=== PATIENT | male | born 1965 | race Caucasian/White ===

== ENCOUNTER 2019-02-15 08:24 | Day surgery (SDC) | payer OTHER ==
[2019-02-15] MEDS ORDERED: LACTATED RINGERS 1,000 ML IV ONE (09:02)
[2019-02-15] MEDS ORDERED: MIDAZOLAM 2 MG/2 ML VIAL IVP ONE (09:11)
[2019-02-15] MEDS ORDERED: fentaNYL 250 MCG/5 ML VIAL IVP ONE (09:11)
[2019-02-15 10:26] VITALS: BP 115/76
== END 2019-02-15 08:25 | disposition home or self-care (01) ==
LOC: SDS 08:24
PROVIDERS: ATTEND Surgery
PROC: 0DJD8ZZ Inspection of Lower Intestinal Tract, Via Natural or Artificial Opening Endoscopic (ICD-10-PCS; principal; 2019-02-15 09:45)
DX: Z12.11 Encounter for screening for malignant neoplasm of colon (principal); K64.8 Other hemorrhoids
CPT/HCPCS: 45378; J3010; J7120

== ENCOUNTER 2019-08-13 08:49 | Outpatient (CLI) | payer OTHER ==
[2019-08-13] MEDS ORDERED: IOVERSOL 320 100 ML VIAL IVP ONE ×2 (09:09→09:16)
--- NOTE | 2019-08-13 10:49 | CT Report ---
Reason: MICROSCOPIC HEMATURIA Procedure Date: 08/13/2019 Accession Number: [id number] / [id number] Procedure: CT - IVP CPT Code: FULL RESULT: EXAM: CT ABDOMEN AND PELVIS WITHOUT AND WITH CONTRAST (CT IVP) EXAM DATE: 08/13/2019 09:33 AM. CLINICAL HISTORY: Microscopic hematuria. COMPARISONS: None. TECHNIQUE: Routine helical imaging was performed through the kidneys, ureters and bladder in the precontrast, postcontrast and delayed phase. IV Contrast: Optiview 320 100 mL. Reconstructions: Coronal and sagittal. In accordance with CT protocol optimization, one or more of the following dose reduction techniques were utilized for this exam: automated exposure control, adjustment of mA and/or KV based on patient size, or use of iterative reconstructive technique. FINDINGS: Lung Bases: Unremarkable. Liver: Normal. No masses. Gallbladder/Bile Ducts: No biliary dilatation. The gallbladder is decompressed without evidence of cholelithiasis. Spleen: Normal. Pancreas: Normal. Adrenal Glands: Normal. Kidneys/Bladder: Right Kidney/Ureter: There is a solitary punctate nonobstructing right upper pole intrarenal calculus. Otherwise, no evidence of nephrolithiasis. No hydronephrosis or hydroureter. No masses. Left Kidney/Ureter: No renal or ureteral stones. No hydronephrosis or hydroureter. No masses. Bladder: No stones. No wall thickening or mass. Peritoneal Cavity/Bowel: Normal. No free fluid, free air or adenopathy. No masses or acute inflammatory process. Pelvic Organs: There is borderline prostatic enlargement. Vasculature: No aneurysms or other significant abnormality. Bones: No significant abnormality. Other: None. IMPRESSION: 1. There is a solitary punctate nonobstructing right upper pole intrarenal calculus. 2. Otherwise negative examination. [facility]
== END 2019-08-13 08:50 | disposition home or self-care (01) ==
LOC: DI 08:49
PROVIDERS: ATTEND Urology
DX: N20.0 Calculus of kidney (principal); R31.29 Other microscopic hematuria
CPT/HCPCS: 74178; Q9967

== ENCOUNTER 2021-09-17 12:55 | Day surgery (SDC) | payer OTHER ==
[~2021-09-17 12:55] MED LIST: LIDOCAINE-MPF 2% 5 ML VIAL ONE; MIDAZOLAM 2 MG/2 ML VIAL ONE; PROPOFOL 200 MG/20 ML VIAL IVP ONE; fentaNYL 100 MCG/2 ML VIAL ONE
[2021-09-17] MEDS ORDERED: LACTATED RINGERS 1,000 ML IV ONE (12:59)
[2021-09-17] MEDS ORDERED: ROCURONIUM 50 MG/5 ML VIAL ONE (13:25)
[2021-09-17] MEDS ORDERED: PROPOFOL 200 MG/20 ML VIAL IVP ONE (13:31)
--- NOTE | 2021-09-17 13:32 | ANESTHESIA ---
Pre-Anesthesia VS, & Labs - Diagnosis external hemorrhoid - Procedure external hemorrhoidectomy Vital Signs: Temp Pulse Resp BP Pulse Ox 36.3 C L 63 16 120/81 H 100 09/17/21 13:01 09/17/21 13:01 09/17/21 13:01 09/17/21 13:01 09/17/21 13:01 Height: 6 ft Weight (kg): 87.5 kg Body Mass Index: 26.2 BMI Classification: Overweight - NPO >8 hours Last Fluid Intake: black coffee 0800 Home Medications and Allergies Home Medications: Ambulatory Orders No Known Home Medications 09/13/21 No Known Home Medications 09/13/21 Allergies/Adverse Reactions: Allergies Allergy/AdvReac Type Severity Reaction Status Date / Time No Known Drug Allergies Allergy Verified 09/13/21 12:17 Anes History & Medical History - Anesthetic History Anesthesia Complications: reports: No previous complications Family history of Anesthesia Complications: Denies Family history of Malignant Hyperthermia: Denies - Medical History Cardiovascular: reports: None Pulmonary: reports: None Gastrointestinal: reports: Hemorrhoids Urinary: reports: None Musculoskeletal: reports: None Endocrine/Autoimmune: reports: None Skin: reports: None - Surgical History General: reports: Colonoscopy Orthopedic: reports: Carpal Tunnel surgery Exam General: Alert, Oriented x3 Dental: WNL Mouth Openin Fingerbreadth Neck Mobility: Normal Mallampati classification: I Thyromental Distance: 4-6 cm Respiratory: Lungs clear Cardiovascular: Regular rate Plan Anesthesia Type: General (GA as back up), Total IV Consent for Procedure(s) Verified and Reviewed: Yes Code Status: Attempt Resuscitation ASA classification: 1-Healthy patient Is this case an emergency?: No
[2021-09-17] MEDS ORDERED: BUPIVACAINE 0.5% PF 10 ML VIAL ONE ×3 (13:36→14:04)
[2021-09-17] MEDS ORDERED: LIDOCAINE 2%-EPI 1:100000 20 ML MDV ONE (13:37)
[2021-09-17] MEDS ORDERED: NALOXONE 0.4 MG/ML VIAL IVP PRN (13:41)
[2021-09-17] MEDS ORDERED: fentaNYL 100 MCG/2 ML VIAL IVP PRN (13:41)
[2021-09-17] MEDS ORDERED: ePHEDrine 50 MG/ML VIAL IVP PRN (13:41)
[2021-09-17] MEDS ORDERED: ONDANSETRON 4 MG/2 ML VIAL IVP PRN ×2 (13:41→14:24)
[2021-09-17] MEDS ORDERED: MORPHINE 2 MG/ML CARPUJECT IVP PRN (13:41)
[2021-09-17] MEDS ORDERED: METOCLOPRAMIDE 10 MG/2 ML VIAL IVP PRN (13:41)
[2021-09-17] MEDS ORDERED: HYDROmorphone 0.5 MG/0.5 ML SYRINGE IVP PRN ×2 (13:41→14:24)
[2021-09-17] MEDS ORDERED: ATROPINE ABBOJECT 1 MG/10 ML SYRINGE IVP PRN (13:41)
[2021-09-17] MEDS ORDERED: LACTATED RINGERS 1,000 ML IV SCH (14:00)
[2021-09-17] MEDS ORDERED: BUPIVACAINE 0.5% PF 30 ML VIAL INFIL ONE (14:06)
[2021-09-17] MEDS ORDERED: LACTATED RINGERS 550 ML IV ONE (14:15)
--- NOTE | 2021-09-17 14:20 | OPERATIVE REPORT ---
Operative Report - General Procedure Date: 09/17/21 Planned Procedure: Excisional external hemorrhoidectomy Pre-Op Diagnosis: Symptomatic thrombosed external hemorrhoid Procedure Performed: Excisional external hemorrhoidectomy Post Op Diagnosis: Same - Procedure Note Primary Surgeon: Felix Lepe MD Anesthesia Provider: Olivia Sawyer CRNA Anesthesia Technique: Local (30 mL of half percent Marcaine), MAC IV Fluids (mL): 400 Estimated Blood Loss (mL): 1 Drain/Tube Type: Other (None.) Indications: Symptomatic thrombosed external hemorrhoid Findings: Symptomatic thrombosed external hemorrhoid at the 9 o'clock position Complications: None. - Other Other Information/Narrative: After verbal and written informed consent was obtained detailing the operation, the alternatives the operation including no operation, risks of infection, bleeding requiring transfusion with its risks, nerve injury, and and after I met with the patient confirming the surgery and the site of surgery, the patient was brought to the operative suite and placed supine on the operating table. Great care was taken to avoid pressure points to prevent pressure necrosis or nerve injury. Monitoring devices were applied along with TEDs and pneumatic compression stockings (to prevent DVT). Olivia Sawyer CRNA sedated and anesthetized the patient for the entire procedure. The patient was prepped and draped in the usual sterile manner. A "time in" then confirmed that the patient was identified with 3 identifiers (name, date, and medical record number), the history and physical was updated and in the chart, the signed consent confirming the procedure was in the chart, the patient was in the correct position, the aforementioned prophylactic measures were in place or given, we had the correct personnel and equipment to complete the procedure and that anesthesia and the surgical team were given an opportunity to express any concerns. With the agreement of everyone in the room we proceeded with the operation. After anesthetizing the skin overlying the thrombosed hemorrhoid as well as the tissues underneath the thrombosed hemorrhoid with half percent Marcaine serial application of a LigaSure excised the thrombosed hemorrhoid along with a thrombus. Great care was taken to ensure that the dissection did not go deep to affect the sphincters. The specimen was then delivered from the operative field and opened on the back table for educational purposes showing the thrombosis. Minimal bleeding was noted primarily from the needle insertion sites and none from the excision site. Dressings were applied. At this point a timeout was performed that confirmed that all counts were correct x2, the procedure that was performed, the blood loss, the IV fluids administered, the patient's condition, and any concerns of the operating team had. Having tolerated the procedure well, the patient was taken recovery room in good and stable condition. The plan is for outpatient discharge when the patient is adequately recovered. This document was created in part using voice recognition technology. Because of the inherent limitations of the system, occasional same sounding word substitutions and grammatical errors do occur and persist despite proofreading. Please read this document for content.
[2021-09-17] MEDS ORDERED: HYDROcod/ACETAM 5/325 MG TABLET PO PRN (14:24)
--- NOTE | 2021-09-17 14:38 | ANESTHESIA POST OP EVALUATION ---
Anesthesia Post Eval - Post Anesthesia Eval Vitals: Last Vital Signs Temp 36.4 C L 09/17/21 14:15 Pulse 55 L 09/17/21 14:15 Resp 12 09/17/21 14:15 BP 117/82 H 09/17/21 14:15 Pulse Ox 100 09/17/21 14:15 CV Function Including HR & BP: Stable Pain Control: Satisfactory Nausea & Vomiting: Negative Mental Status: Baseline Respiratory Status: Airway Patent Hydration Status: Satisfactory Anesthesia Complications: None
[2021-09-17 15:08] VITALS: BP 118/86
== END 2021-09-17 12:56 | disposition home or self-care (01) ==
LOC: SDS 12:55
PROVIDERS: ATTEND Surgery
DX: K64.5 Perianal venous thrombosis (principal)
CPT/HCPCS: 46320; J7120

== ENCOUNTER 2022-11-16 08:11 | Outpatient (CLI) | payer OTHER ==
[2022-11-16] MEDS ORDERED: GADOBUTROL 10 MMOL/10 ML VIAL IVP ONE (10:40)
--- NOTE | 2022-11-16 14:21 | MRI Report ---
PROCEDURE: MRI lumbar spine without contrast INDICATIONS: LUMBAR SPRAIN TECHNIQUE: Noncontrast sagittal T1 spin echo and T2 fast echo, sagittal STIR, axial T1 and T2 fast spin echo thr ough the lumbar spine. In cases with scoliosis, additional coronal T2 fast spin echo may be performe d. COMPARISON: None. FINDINGS: Image quality: Excellent. Alignment and Curvature: There is normal bony alignment. Bone Marrow: Marrow is of normal overall signal. No acute vertebral body compression fractures. Spinal Cord: Conus medullaris terminates at the L1 level. Visualized cord demonstrates normal signa l and size. Paraspinous Soft Tissues: No paravertebral masses. T12-L1: Normal in appearance. L1-L2: Mild disc height is maintained. Small focal asymmetric right disc bulge effaces the right l ateral recess. Mild central stenosis. No foraminal stenosis bilaterally. L2-L3: Disc height is maintained. Circumferential disc bulge without central or foraminal stenosis . L3-L4: Disc height is maintained. Circumferential disc bulge and hypertrophic facet joints combine to result in mild central stenosis. No foraminal stenosis L4-L5: Disc height is maintained. Circumferential disc bulge and facet hypertrophy results in mild central stenosis. Moderate right and no left foraminal stenosis L5-S1: Normal in appearance. IMPRESSION: Mild multilevel degenerative disc disease and arthropathy results in moderate right foraminal stenosi s at L4-5 Reviewed by: James Lieberman MD on 11/16/2022 1:20 PM [facility] Approved by: James Lieberman MD on 11/16/2022 1:20 PM [facility] Station ID: [id number]
== END 2022-11-16 08:12 | disposition home or self-care (01) ==
LOC: DI 08:11
PROVIDERS: ATTEND Physical Medicine & Rehabilitation Pain Medicine
DX: M51.36 Other intervertebral disc degeneration, lumbar region (principal); M48.061 Spinal stenosis, lumbar region without neurogenic claudication
CPT/HCPCS: 72148; A9585

== ENCOUNTER 2022-11-16 08:56 | Outpatient (CLI) | payer OTHER ==
[~2022-11-16 08:56] MED LIST changes: +GADOBUTROL 10 MMOL/10 ML VIAL ONE; -LIDOCAINE-MPF 2% 5 ML VIAL ONE; -MIDAZOLAM 2 MG/2 ML VIAL ONE; -PROPOFOL 200 MG/20 ML VIAL IVP ONE; -fentaNYL 100 MCG/2 ML VIAL ONE
--- NOTE | 2022-11-16 14:10 | MRI Report ---
PROCEDURE: MRI brain with and without contrast INDICATIONS: VERTIGO CONTRAST: 8.4 TECHNIQUE: Noncontrast axial T1 spin echo, axial T2 fast spin echo, sagittal and axial FLAIR, coronal T2 fast sp in echo, axial gradient echo, axial diffusion and ADC through the brain. After the administration of contrast, axial and coronal T1 spin echo with fat saturation through the brain. COMPARISON: None. FINDINGS: Image quality: Excellent. CSF spaces: Basal cisterns are patent. No extra-axial fluid collections. Ventricles are normal in size and shape. Brain: No midline shift. No intracranial bleeds or masses. No abnormal intracranial enhancement. There is cerebral volume loss for age. There is periventricular white matter chronic small vessel is chemic change. The brainstem appears normal. Diffusion-weighted images demonstrate no acute infarct s. Normal intravascular flow voids are present. Skull and face: Calvarial marrow is normal in signal. Orbits appear normal. Sinuses: Sinuses and mastoids appear clear. IMPRESSION: Normal MRI of the brain with and without contrast Reviewed by: James Lieberman MD on 11/16/2022 1:08 PM [facility] Approved by: James Lieberman MD on 11/16/2022 1:08 PM [facility] Station ID: [id number]
== END 2022-11-16 08:57 | disposition home or self-care (01) ==
LOC: DI 08:56
PROVIDERS: ATTEND Internal Medicine
DX: R42 Dizziness and giddiness (principal)
CPT/HCPCS: 70553; A9585

== ENCOUNTER 2023-04-04 09:59 | Outpatient (CLI) | payer OTHER ==
[2023-04-04] MEDS ORDERED: GADOBUTROL 10 MMOL/10 ML VIAL IVP ONE (11:01)
--- NOTE | 2023-04-04 16:35 | MRI Report ---
PROCEDURE: IAC'S W/WO INDICATIONS: OTHER DISORDERS OF VESTIFULAR FUNCTION, LEFT EAR CONTRAST: GADAVIST 8.6 ML TECHNIQUE: Noncontrast sagittal T1 spin echo, axial FLAIR, axial gradient echo, axial diffusion and ADC through the brain. Axial thin-slice 3D CISS, coronal balanced GE, axial T1 spin echo with fat saturation thr ough the internal auditory canals. After the administration of contrast, thin slice axial and segal l T1 spin echo with fat saturation through the internal auditory canals, and axial T1 spin echo with fat saturation through the brain. COMPARISON: 11/16/2022 FINDINGS: Image quality: Excellent. Cerebellopontine angles: No cerebellopontine angle masses. Inner ear structures appear normally for med. No suspicious enhancement in the internal auditory canal or along the course of the 7th cranial nerve. CSF spaces: Ventricles are normal in size and shape. No extra-axial fluid collections. Basal ciste rns are patent. Brain: No intracranial bleeds or mass effects. Schulz-white matter interface is intact. No abnormal intracranial enhancement. Diffusion weighted images demonstrate no acute ischemic insults. Brainste m appears normal. Normal intravascular flow voids are present. Skull and face: Calvarial marrow signal is normal. Orbits appear normal. Sinuses: Sinuses and mastoids are clear. IMPRESSION: No imaging explanation is found for the patient's presenting symptoms. Specifically, no findings of m asses or abnormal enhancement can be found within the internal auditory canals or the cerebellopontin e angle cisterns. Reviewed by: Eloy Lora MD on 04/04/2023 3:34 PM [facility] Approved by: Eloy Lora MD on 04/04/2023 3:34 PM [facility] Station ID: [id number]
== END 2023-04-04 10:00 | disposition home or self-care (01) ==
LOC: DI 09:59
PROVIDERS: ATTEND Otolaryngology
DX: D33.3 Benign neoplasm of cranial nerves (principal); H81.8X2 Other disorders of vestibular function, left ear
CPT/HCPCS: 70553; A9585

== ENCOUNTER 2023-09-19 15:50 | Outpatient (CLI) | payer OTHER ==
[2023-09-19 16:08] LABS: BILIRUBIN,URINE NEGATIVE (NEGATIVE); GLUCOSE, URINE (UA) NEGATIVE (NEGATIVE); KETONES,URINE (UA) NEGATIVE (NEGATIVE); LEUKOCYTE ESTERASE, URINE NEGATIVE (NEGATIVE); NITRITE,URINE NEGATIVE (NEGATIVE); OCCULT BLOOD,URINE TRACE-INTA (NEGATIVE); PH,URINE 6.5 PH (5.0-7.5); PROTEIN,URINE NEGATIVE (NEGATIVE); UROBILINOGEN,URINE 0.2 (NORMAL) E.U./dL (NORMAL)
[2023-09-19 16:20] LABS: CLARITY,URINE CLEAR (CLEAR); RBC,URINE 0-5 /HPF (0-5); SQUAMOUS EPITHELIAL CELL,UR RARE Squamous (<= Few); WBC,URINE 0-3 /HPF (0-3)
[2023-09-19 16:21] LABS: BACTERIA,URINE None Seen /HPF (None Seen)
== END 2023-09-19 23:59 | disposition home or self-care (01) ==
LOC: LAB 15:50
PROVIDERS: ATTEND Urology
DX: R31.9 Hematuria, unspecified (principal)
CPT/HCPCS: 81001; 87086